=== PATIENT | male | born 1995 | race Two or more races ===

== ENCOUNTER 2017-11-02 18:41 | Emergency (ER) | payer MEDICARE ==
[~2017-11-02] VITALS: Ht 172.7 cm; Wt 76.0 kg
[2017-11-02] MEDS ORDERED: morphine 4 MG/ML inj SYRINge IV ONE (19:50)
[2017-11-02] MEDS ORDERED: ketorolac trometh. 30mg/ml inj. IV ONE (19:50)
[2017-11-02] MEDS ORDERED: propofol 10mg/ml 20ml vial IV ONE (19:50)
[2017-11-02] MEDS ORDERED: ondansetron/PF 4mg/2ml inj IV ONE (19:50)
[2017-11-02] MEDS ORDERED: HYDR-3965 PO (20:36)
[2017-11-02] MEDS ORDERED: IBUP-1984 PO (20:36)
[2017-11-02] MEDS ORDERED: HYDROcodone/acetaminophen 5mg/325mg tablet PO ONE (20:40)
[2017-11-02 21:13] VITALS: BP 149/91
== END 2017-11-02 21:18 | disposition home or self-care (01) ==
LOC: ER 18:42
DX: S43.005A Unspecified dislocation of left shoulder joint, initial encounter (principal); W16.42XA Fall into unspecified water causing other injury, initial encounter; Y93.17 Activity, water skiing and wake boarding; Y92.89 Other specified places as the place of occurrence of the external cause; Y99.8 Other external cause status
CPT/HCPCS: 23650; 73020; 73030; 96374; 96375; 99285; J1885; J2270; J2405; J2704; J7030